=== PATIENT | female | born 1955 | race Caucasian/White ===

== ENCOUNTER → 2020-12-02 | Outpatient (CLI) | payer BC | LOC: LAB 11:49 | DX: Z01.89 Encounter for other specified special examinations (principal); Z20.828 Contact with and (suspected) exposure to other viral communicable diseases ==

== ENCOUNTER → 2021-01-27 | Outpatient (CLI) | payer MEDICARE, OTHER ==
[~2021-01-27] MED LIST: ACETAMINOPHEN-H1 TA2 PO; AMBIEN10 MG PO; BUDESONIDE0.25 MG/2 IH; COZAAR100 MG PO; DAILY VALUE1 EACH PO; HCTZ/TRIAMTEREN1 CA2 PO; INSULIN AS100 UNIT/2 SQ; LEVOTHYROXINE75 MCG PO; MELATONIN10 M2 PO; METFORMIN HYD1000 MG PO; NORTRIPTYLINE H10 M2 PO; NOVOLOG FLEX100 U/ML SQ; PEXEVA40 MG PO; PHARMASSURE MA500 MG PO; PRILOSEC OTC20 MG PO; PROAIR DIGIHAL90 MCG IH; REPATHA SU140 MG/1 M SQ; SYMBICORT1 AE2 IH; TIMOLOL MALEAT1 EACH OP; TIZANIDINE HYDRO4 MG PO; TRESIBA FL100 UNIT/1 SQ; TRILIPIX 135MG PO; TRULANCE3 MG PO; VALERIAN150 MG PO; VASCEPA1 GM PO; VITAMIN D3125 MC1 PO; ZIOPTAN 0.00151 EACH OU
== END ==
LOC: LAB 14:18
DX: Z01.89 Encounter for other specified special examinations (principal); Z20.822 Contact with and (suspected) exposure to COVID-19

== ENCOUNTER → 2021-08-12 | Outpatient (CLI) | payer MEDICARE, OTHER ==
[2021-08-12 17:07] LABS: BASO # 0.05 (0.02-0.10); EOS # 0.19 (0.04-0.40); EOS % 2.3 % (1.0-5.0); HEMATOCRIT 40.5 % (37.0-47.0); HEMOGLOBIN 13.5 g/dL (12.5-16.0); LYMPH# 2.25 (1.50-4.00); MEAN CELL VOLUME 96 fl (78-100); MEAN CORPUSCULAR HEMOGLOBIN 32 pg (27-31); MEAN CORPUSCULAR HGB CONC 33 g/dL (33-37); MEAN PLATELET VOLUME 9.8 fl (7.4-10.4); MONO # 0.53 (0.20-0.80); NEU # 5.36 (1.40-6.50); PLATELET COUNT 306 K/mm3 (130-400); RED BLOOD COUNT 4.21 M/mm3 (4.10-5.30); RED CELL DISTRIBUTION WIDTH 12.3 % (11.5-14.5); WHITE BLOOD COUNT 8.4 K/mm3 (4.8-10.8)
[2021-08-12 17:13] LABS: ALBUMIN 4.4 g/dL (3.4-4.8); POTASSIUM 4.2 mmol/L (3.5-5.1)
[2021-08-12 17:14] LABS: CALCIUM 10.4 mg/dL (8.3-10.5)
[2021-08-12 17:16] LABS: TOTAL PROTEIN 7.2 g/dL (6.2-8.1)
[2021-08-12 17:17] LABS: TOTAL BILIRUBIN 0.3 mg/dL (0.2-1.2)
[2021-08-15 23:14] LABS: ADRENOCORTICOTROPIC HORMONE 12 pg/mL (5-27)
== END ==
LOC: LAB 16:11
PROVIDERS: Internal Medicine
DX: E11.9 Type 2 diabetes mellitus without complications (principal); K90.9 Intestinal malabsorption, unspecified

== ENCOUNTER → 2021-08-15 | Outpatient (CLI) | payer MEDICARE, OTHER | LOC: LAB 13:36 | PROVIDERS: Internal Medicine | DX: E11.9 Type 2 diabetes mellitus without complications (principal) ==

== ENCOUNTER → 2021-09-12 | Outpatient (CLI) | payer MEDICARE, OTHER ==
[~2021-09-12] VITALS: Ht 160 cm; Wt 78.6 kg
[2021-09-12 11:30] VITALS: BP 140/78
[2021-09-12 12:05] LABS: POTASSIUM 4.1 mmol/L (3.5-5.1)
[2021-09-16 19:12] LABS: ADRENOCORTICOTROPIC HORMONE 18 pg/mL (5-27)
== END ==
LOC: AMSURD 11:01
PROVIDERS: Internal Medicine
DX: E27.40 Unspecified adrenocortical insufficiency (principal)
CPT/HCPCS: J0834

== ENCOUNTER → 2021-11-28 | Outpatient (CLI) | payer MEDICARE, OTHER ==
[2021-11-28 11:47] LABS: BASO # 0.02 K/mm3 (0.02-0.10); EOS # 0.06 K/mm3 (0.04-0.40); EOS % 1.3 % (1.0-5.0); HEMATOCRIT 40.4 % (37.0-47.0); HEMOGLOBIN 13.3 g/dL (12.5-16.0); LYMPH# 1.33 K/mm3 (1.50-4.00); MEAN CELL VOLUME 96 fl (78-100); MEAN CORPUSCULAR HEMOGLOBIN 32 pg (27-31); MEAN CORPUSCULAR HGB CONC 33 g/dL (33-37); MEAN PLATELET VOLUME 10.2 fl (7.4-10.4); MONO # 0.33 K/mm3 (0.20-0.80); NEU # 2.73 K/mm3 (1.40-6.50); PLATELET COUNT 291 K/mm3 (130-400); RED BLOOD COUNT 4.19 M/mm3 (4.10-5.30); RED CELL DISTRIBUTION WIDTH 12.4 % (11.5-14.5); WHITE BLOOD COUNT 4.5 K/mm3 (4.8-10.8)
[2021-11-28 11:49] LABS: ALBUMIN 4.4 g/dL (3.4-4.8); POTASSIUM 3.8 mmol/L (3.5-5.1)
[2021-11-28 11:50] LABS: CALCIUM 9.9 mg/dL (8.3-10.5)
[2021-11-28 11:51] LABS: TOTAL PROTEIN 7.6 g/dL (6.2-8.1)
[2021-11-28 11:53] LABS: TOTAL BILIRUBIN 0.4 mg/dL (0.2-1.2)
[2021-11-28 11:55] LABS: PH-URINE 5.5 (5.0 - 8.0); URINE APPEARANCE CLEAR; URINE BILIRUBIN NEGATIVE (NEGATIVE); URINE BLOOD NEGATIVE (NEGATIVE); URINE COLOR YELLOW; URINE GLUCOSE NEGATIVE (NEGATIVE); URINE KETONE NEGATIVE (NEGATIVE); URINE LEUKOCYTE ESTERASE NEGATIVE (NEGATIVE); URINE NITRATE NEGATIVE (NEGATIVE); URINE PROTEIN(semi-quant) TRACE (NEGATIVE); URINE UROBILINOGEN NORMAL (NORMAL)
[2021-11-28 11:58] LABS: MAGNESIUM 1.77 mg/dL (1.60-2.60)
== END ==
LOC: LAB 10:48
PROVIDERS: Internal Medicine
DX: Z01.818 Encounter for other preprocedural examination (principal)

== ENCOUNTER → 2022-03-23 | Outpatient (CLI) | payer MEDICARE, OTHER | LOC: LAB 12:34 | DX: E11.9 Type 2 diabetes mellitus without complications (principal); E03.9 Hypothyroidism, unspecified; F51.04 Psychophysiologic insomnia ==

== ENCOUNTER → 2022-12-25 | Outpatient (CLI) | payer MEDICARE, OTHER ==
[~2022-12-25] VITALS: Ht 160 cm; Wt 78.6 kg
[2022-12-25 16:46] LABS: BASO # 0.04 K/mm3 (0.02-0.10); EOS # 0.09 K/mm3 (0.04-0.40); EOS % 1.2 % (1.0-5.0); HEMATOCRIT 37.6 % (37.0-47.0); HEMOGLOBIN 12.6 g/dL (12.5-16.0); LYMPH# 1.98 K/mm3 (1.50-4.00); MEAN CELL VOLUME 96 fl (78-100); MEAN CORPUSCULAR HEMOGLOBIN 32 pg (27-31); MEAN CORPUSCULAR HGB CONC 34 g/dL (33-37); MEAN PLATELET VOLUME 9.5 fl (7.4-10.4); MONO # 0.48 K/mm3 (0.20-0.80); NEU # 4.68 K/mm3 (1.40-6.50); PLATELET COUNT 308 K/mm3 (130-400); RED CELL DISTRIBUTION WIDTH 12.4 % (11.5-14.5); WHITE BLOOD COUNT 7.3 K/mm3 (4.8-10.8)
[2022-12-25 16:50] LABS: ALBUMIN 4.3 g/dL (3.4-4.8); POTASSIUM 3.9 mmol/L (3.5-5.1)
[2022-12-25 16:51] LABS: CALCIUM 9.9 mg/dL (8.3-10.5)
[2022-12-25 16:54] LABS: TOTAL BILIRUBIN 0.2 mg/dL (0.2-1.2)
[2022-12-25 16:59] LABS: MAGNESIUM 1.67 mg/dL (1.60-2.60)
[2022-12-25 17:01] VITALS: BP 162/88
[2022-12-25 17:26] LABS: URINE APPEARANCE CLEAR; URINE BILIRUBIN NEGATIVE (NEGATIVE); URINE BLOOD NEGATIVE (NEGATIVE); URINE COLOR YELLOW; URINE GLUCOSE NEGATIVE (NEGATIVE); URINE KETONE NEGATIVE (NEGATIVE); URINE LEUKOCYTE ESTERASE NEGATIVE (NEGATIVE); URINE NITRATE NEGATIVE (NEGATIVE); URINE PROTEIN(semi-quant) NEGATIVE (NEGATIVE); URINE UROBILINOGEN NORMAL (NORMAL); URINE WBC 0-1 /hpf (0-3)
== END ==
LOC: LAB 16:28
PROVIDERS: Internal Medicine
DX: Z01.818 Encounter for other preprocedural examination (principal); J01.90 Acute sinusitis, unspecified

== ENCOUNTER → 2023-08-02 | Outpatient (CLI) | payer MEDICARE, OTHER ==
[2023-08-02 12:20] LABS: URINE WBC 0 /hpf (0-3)
[2023-08-02 12:37] LABS: URINE APPEARANCE CLEAR; URINE BILIRUBIN NEGATIVE (NEGATIVE); URINE BLOOD NEGATIVE (NEGATIVE); URINE COLOR YELLOW; URINE GLUCOSE NEGATIVE (NEGATIVE); URINE KETONE NEGATIVE (NEGATIVE); URINE LEUKOCYTE ESTERASE NEGATIVE (NEGATIVE); URINE NITRATE NEGATIVE (NEGATIVE); URINE PROTEIN(semi-quant) NEGATIVE (NEGATIVE); URINE UROBILINOGEN NORMAL (NORMAL)
== END ==
LOC: LAB 12:12
PROVIDERS: Internal Medicine
DX: R44.1 Visual hallucinations (principal); G47.33 Obstructive sleep apnea (adult) (pediatric); F51.04 Psychophysiologic insomnia; E11.9 Type 2 diabetes mellitus without complications; E03.9 Hypothyroidism, unspecified; E78.2 Mixed hyperlipidemia; K90.9 Intestinal malabsorption, unspecified; J45.909 Unspecified asthma, uncomplicated; R20.2 Paresthesia of skin; J01.90 Acute sinusitis, unspecified; N39.0 Urinary tract infection, site not specified; M79.641 Pain in right hand; M79.642 Pain in left hand

== ENCOUNTER → 2023-09-17 | Outpatient (CLI) | payer MEDICARE, OTHER ==
[2023-09-17 12:25] LABS: BASO # 0.05 K/mm3 (0.02-0.10); EOS % 1.4 % (1.0-5.0); HEMATOCRIT 41.2 % (37.0-47.0); HEMOGLOBIN 13.6 g/dL (12.5-16.0); LYMPH# 2.11 K/mm3 (1.50-4.00); MEAN CELL VOLUME 98 fl (78-100); MEAN CORPUSCULAR HEMOGLOBIN 32 pg (27-31); MEAN CORPUSCULAR HGB CONC 33 g/dL (33-37); MONO # 0.58 K/mm3 (0.20-0.80); NEU # 4.12 K/mm3 (1.40-6.50); PLATELET COUNT 310 K/mm3 (130-400); RED BLOOD COUNT 4.22 M/mm3 (4.10-5.30); RED CELL DISTRIBUTION WIDTH 12.4 % (11.5-14.5)
[2023-09-17 12:29] LABS: ALBUMIN 4.7 g/dL (3.4-4.8)
[2023-09-17 12:31] LABS: TOTAL PROTEIN 7.9 g/dL (6.2-8.1)
[2023-09-17 12:33] LABS: TOTAL BILIRUBIN 0.4 mg/dL (0.2-1.2)
[2023-09-17 13:47] LABS: ERYTHROCYTE SEDIMENTATION RATE 13 mm/hr (0-30)
== END ==
LOC: RAD 11:42
PROVIDERS: Internal Medicine
DX: G43.909 Migraine, unspecified, not intractable, without status migrainosus (principal); J01.41 Acute recurrent pansinusitis; G47.33 Obstructive sleep apnea (adult) (pediatric); F51.04 Psychophysiologic insomnia; E11.9 Type 2 diabetes mellitus without complications; E03.9 Hypothyroidism, unspecified; E78.2 Mixed hyperlipidemia; K90.9 Intestinal malabsorption, unspecified; M79.641 Pain in right hand; J45.909 Unspecified asthma, uncomplicated

== ENCOUNTER → 2024-05-22 | Outpatient (CLI) | payer MEDICARE, OTHER | LOC: RAD 16:05 | DX: M77.32 Calcaneal spur, left foot (principal) ==

== ENCOUNTER → 2024-06-02 | Outpatient (CLI) | payer MEDICARE, OTHER | LOC: RAD 12:51 | DX: M84.375A Stress fracture, left foot, initial encounter for fracture (principal) ==